=== PATIENT | female | born 1995 | race Caucasian/White ===

== ENCOUNTER 2021-11-17 20:47 | Outpatient (REF) | payer OTHER, SELFPAY ==
[2021-11-19 10:58] LABS: Lyme Ab w Rflx to Lyme Confirm Negative (Negative)
[2021-11-21 09:29] LABS: Anaplasma phagocytophilum Negative (Negative); B. miyamotoi PCR Negative (Negative); Babesia divergens/MO-1 Negative (Negative); Babesia duncani Negative (Negative); Babesia microti Negative (Negative); Ehrlichia chaffeensis Negative (Negative); Ehrlichia ewingii/canis Negative (Negative); Ehrlichia muris eauclairensis Negative (Negative)
== END 2021-11-17 20:48 | disposition home or self-care (01) ==
LOC: LBN 20:47
PROVIDERS: Visit Provider Physician Assistant Medical
DX: R21 Rash and other nonspecific skin eruption (principal)
CPT/HCPCS: 87798; 86618